=== PATIENT | male | born 1995 | race Caucasian/White ===

== ENCOUNTER 2019-08-15 19:22 | Emergency (ER) | payer SELFPAY ==
[~2019-08-15] VITALS: Ht 177.8 cm; Wt 75.0 kg
[2019-08-15 19:30] VITALS: Ht 177.8 cm; Wt 75.0 kg
[2019-08-15 22:49] LABS: CALCIUM 8.6 mg/dL (8.5-10.1); CARBON DIOXIDE 27.8 mmol/L (21-32); CHLORIDE SERUM 102 mmol/L (98-107); CREATININE SERUM 0.8 mg/dL (0.7-1.3); GFR1 > 60 mL/min; GLUCOSE SERUM 103 mg/dL (74-106); POTASSIUM SERUM 3.8 mmol/L (3.5-5.1); SODIUM SERUM 139 mmol/L (136-145)
[2019-08-15 22:50] LABS: BASOPHIL % 0.6 % (0-2); PLATELET COUNT 274 x10^3mcL (130-400); RED CELL DISTRIBUTION WIDTH 12.5 % (11.5-14.5)
[2019-08-15 22:54] LABS: ALBUMIN 3.8 g/dL (3.4-5.0); ALKALINE PHOSPHATASE 108 U/L (46-116); ALT/SGPT 29 U/L (16-63); AST/SGOT 14 U/L (15-37); CHOLESTEROL 144 mg/dL (<200); CHOLESTEROL/HDL RATIO 2.4; HDL CHOLESTEROL 60 mg/dL (40-60); LIPASE 79 IU/L (73-393); TOTAL PROTEIN, SERUM 7.2 g/dL (6.4-8.2); TRIGLYCERIDES 90 mg/dL (<150)
[2019-08-15 23:04] LABS: FREE T4 0.87 ng/dL (0.76-1.46); FREE THYROXINE INDEX 1.9 ug/dL (1.4-4.5); T4(THYROXINE) 5.6 ug/dL (4.7-13.3)
[2019-08-15 23:06] LABS: T3 TOTAL 1.14 ng/mL
[2019-08-15 23:37] VITALS: BP 147/72
[2019-08-16 00:29] LABS: microscopic required? NO
[2019-08-16 01:11] LABS: urine erythrocyte NEGATIVE (NEGATIVE)
[2019-08-16 01:20] LABS: AMPHETAMINE QUAL UR NONE DETECTED (See below)
== END 2019-08-15 23:37 | disposition home or self-care (01) ==
LOC: ED 19:22
PROVIDERS: Specialist
DX: R07.89 Other chest pain (principal); F19.10 Other psychoactive substance abuse, uncomplicated; F17.200 Nicotine dependence, unspecified, uncomplicated
CPT/HCPCS: 36415; 83880; 84439